=== PATIENT | female | born 1980 | race Caucasian/White ===

== ENCOUNTER 2016-05-31 14:59 | Emergency (ER) | payer SELFPAY ==
[~2016-05-31] VITALS: Ht 175.3 cm; Wt 101.6 kg
[~2016-05-31 14:59] MED LIST: ALPRAZOLAM1 MG PO; AMBIEN5 MG PO; ANTISEPTIC SKI237 ML TP; B-125000 MC1 SL; B-125000 MC2 PO; BACTRIM,SEPT1 TABLE1 PO; BACTRIM,SEPT1 TABLET PO; BIOTIN10 MG PO; BIOTIN1000 MICRO PO; CARAFATE1 GM PO; CEPHALEXIN500 MG PO; CIPRO500 MG PO; CLOPIDOGREL75 MG PO; DAILY VALUE1 EACH PO; DAILY VITE1 EAC1 PO; DICYCLOMINE HCL20 MG PO; DILAUDID2 MG PO; DOXYCYCLINE HY100 MG PO; ENDOCET 5-3251 EACH PO; ENOXAPARIN100 MG/1 M SC; EPIPEN ADU0.3 MG/0.3 IM; ESSENTIAL WOMA1 EAC1 PO; FAMOTIDINE20 MG PO; FEOSOL325 MG PO; FERROUS SULFAT325 MG PO; HEPARIN SO25000 UNIT IV; HUMIRA CRO40 MG/0.8 SC; HYDROCODON-ACE1 EAC7 PO; HYDROMORPHONE HC4 MG PO; HYDROXYZINE PAM25 MG PO; IRON325 MG PO; KEFLEX500 MG PO; LEVAQUIN750 MG PO; LINEZOLID600 MG PO; LOVENOX100 MG/1 M SC; METHYLPHENIDATE36 MG PO; PANTOPRAZOLE SO40 MG PO; PERCOCET 5/31 TABLET PO; PLAVIX75 MG PO; PREDNISONE20 MG PO; PROMETHAZINE HC25 M1 PO; SENOKOT,SENN1 TABLET PO; VENLAFAXINE HCL75 M3 PO; WELLBUTRIN XL300 MG PO; XANAX0.5 MG PO; ZOFRAN4 MG PO; ZOLPIDEM TARTRAT5 MG PO; fentaNYL Citrate IV
[2016-05-31] MEDS ORDERED: LO-DOSE ASPIRIN81 M2 PO (16:29)
[2016-05-31 16:51] LABS: HEMATOCRIT 42.9 % (36.0-46.0); MCH 29.4 PG (29.0-34.0); MCV 86.3 FL (83-99); MEAN PLAT.VOLUME 10.3 uM^3 (9.5-12.4); PLATELET COUNT 234 K/uL (156-360); RBC DIS.WIDTH-CV 14.1 % (11.8-14.6); RBC DIS.WIDTH-SD 43.2 % (39-53); RED BLOOD COUNT 4.97 M/uL (3.80-5.20); WHITE BLOOD COUNT 8.2 K/uL (4.1-10.2)
[2016-05-31 17:00] LABS: CHLORIDE 109 mEq/L (99-109); POTASSIUM 4.1 mEq/L (3.7-5.4); SODIUM 138 mEq/L (136-147)
[2016-05-31 17:02] LABS: GLUCOSE 99 mg/dL (70-99)
[2016-05-31 17:04] LABS: ANION GAP 12 MEQ/L (2-14)
[2016-05-31 17:06] LABS: GFR ESTIMATE (CALCULATED) > 59 mL/min/
[2016-05-31 17:07] LABS: UREA NITROGEN (BUN) 14 mg/dL (9-23)
[2016-05-31 22:25] VITALS: BP 121/77
== END 2016-05-31 22:38 | disposition home or self-care (01) ==
LOC: EME 14:59
DX: R06.02 Shortness of breath (principal); M54.9 Dorsalgia, unspecified; Q96.9 Turner's syndrome, unspecified; Z79.01 Long term (current) use of anticoagulants; Z86.718 Personal history of other venous thrombosis and embolism
CPT/HCPCS: 71020; 71275; 78582; 80048; 85027; 93005; 99281; 99285; A9540; A9567; J1170; Q0169

== ENCOUNTER 2016-06-18 22:24 | Emergency (ER) | payer BC ==
[~2016-06-18] VITALS: Ht 175.3 cm; Wt 102.7 kg
[~2016-06-18 22:24] MED LIST changes: +LO-DOSE ASPIRIN81 M2 PO
[2016-06-18 23:20] LABS: CHLORIDE 109 mEq/L (99-109); POTASSIUM 4.3 mEq/L (3.7-5.4); SODIUM 139 mEq/L (136-147)
[2016-06-18 23:22] LABS: GLUCOSE 122 mg/dL (70-99)
[2016-06-18 23:23] LABS: ANION GAP 11 MEQ/L (2-14)
[2016-06-18 23:25] LABS: HEMATOCRIT 43.5 % (36.0-46.0); MCH 29.8 PG (29.0-34.0); MCHC 34.9 G/DL (30.0-36.0); MCV 85.3 FL (83-99); MEAN PLAT.VOLUME 10.7 uM^3 (9.5-12.4); PLATELET COUNT 232 K/uL (156-360); RBC DIS.WIDTH-CV 14.1 % (11.8-14.6); RBC DIS.WIDTH-SD 42.9 % (39-53)
[2016-06-18 23:26] LABS: GFR ESTIMATE (CALCULATED) > 59 mL/min/; UREA NITROGEN (BUN) 11 mg/dL (9-23)
[2016-06-18 23:36] LABS: PTT 19.4 (25-32)
[2016-06-18 23:41] LABS: WHITE BLOOD COUNT 5.4 K/uL (4.1-10.2)
[2016-06-19] MEDS ORDERED: PERCOCET 5/31 TABLET PO (01:50)
[2016-06-19 02:09] VITALS: BP 136/76
== END 2016-06-19 02:10 | disposition home or self-care (01) ==
LOC: EME 22:24
PROVIDERS: Emergency Medicine
DX: I82.5Z1 Chronic embolism and thrombosis of unspecified deep veins of right distal lower extremity (principal); D68.59 Other primary thrombophilia; K92.2 Gastrointestinal hemorrhage, unspecified; K21.9 Gastro-esophageal reflux disease without esophagitis; Z87.442 Personal history of urinary calculi; Z86.718 Personal history of other venous thrombosis and embolism; Z86.711 Personal history of pulmonary embolism; Z79.82 Long term (current) use of aspirin
CPT/HCPCS: 80048; 85027; 85610; 85730; 93971; 99281; 99284

== ENCOUNTER 2016-07-15 13:35 | Emergency (ER) | payer OTHER ==
[~2016-07-15] VITALS: Ht 175.3 cm; Wt 103.3 kg
[2016-07-15 15:12] LABS: HEMATOCRIT 41.7 % (36.0-46.0); MCH 29.3 PG (29.0-34.0); MCHC 34.1 G/DL (30.0-36.0); MEAN PLAT.VOLUME 9.9 uM^3 (9.5-12.4); PLATELET COUNT 241 K/uL (156-360); RBC DIS.WIDTH-CV 13.7 % (11.8-14.6); RBC DIS.WIDTH-SD 42.6 % (39-53); RED BLOOD COUNT 4.85 M/uL (3.80-5.20); WHITE BLOOD COUNT 5.4 K/uL (4.1-10.2)
[2016-07-15 15:21] LABS: CHLORIDE 108 mEq/L (99-109); POTASSIUM 3.7 mEq/L (3.7-5.4); SODIUM 140 mEq/L (136-147)
[2016-07-15 15:23] LABS: GLUCOSE 91 mg/dL (70-99)
[2016-07-15 15:24] LABS: ANION GAP 9 MEQ/L (2-14)
[2016-07-15 15:25] LABS: INTER. NORMALIZED RATIO 1.1; PROTHROMBIN TIME 10.8 (9.2-11.2); PTT 26.6 (25-32); TOTAL BILIRUBIN 1.2 mg/dL (0.0-1.0)
[2016-07-15 15:26] LABS: ALKALINE PHOSPHATASE 88 IU/L (3-129); GFR ESTIMATE (CALCULATED) > 59 mL/min/
[2016-07-15 15:28] LABS: UREA NITROGEN (BUN) 12 mg/dL (9-23)
[2016-07-15 15:30] LABS: LIPASE 43 U/L (1.0-51.0)
[2016-07-15 16:30] VITALS: BP 143/81
[2016-07-15 17:30] VITALS: BP 129/80
[2016-07-15 18:00] VITALS: BP 139/88
[2016-07-15 18:31] VITALS: BP 109/76
[2016-07-15 18:53] VITALS: BP 109/76
== END 2016-07-15 18:53 | disposition home or self-care (01) ==
LOC: EME 13:35
PROVIDERS: Nurse Practitioner Family
DX: K94.09 Other complications of colostomy (principal); K50.90 Crohn's disease, unspecified, without complications
CPT/HCPCS: 74177; 80053; 83690; 85027; 85610; 85730; 99281; 99284; J3010; J7030

== ENCOUNTER 2016-08-22 10:01 | Inpatient (IN) | payer OTHER ==
[~2016-08-22] VITALS: Ht 175.3 cm; Wt 107.7 kg
[2016-08-22 11:33] LABS: HEMATOCRIT 44.6 % (36.0-46.0); MCH 29.4 PG (29.0-34.0); MCHC 32.7 G/DL (30.0-36.0); MCV 89.7 FL (83-99); MEAN PLAT.VOLUME 10.1 uM^3 (9.5-12.4); PLATELET COUNT 284 K/uL (156-360); RBC DIS.WIDTH-CV 13.5 % (11.8-14.6); RBC DIS.WIDTH-SD 44.3 % (39-53); RED BLOOD COUNT 4.97 M/uL (3.80-5.20)
[2016-08-22 11:38] LABS: PROTHROMBIN TIME 10.3 (9.2-11.2)
[2016-08-22 11:41] LABS: CHLORIDE 106 mEq/L (99-109); POTASSIUM 4.3 mEq/L (3.7-5.4); SODIUM 138 mEq/L (136-147)
[2016-08-22 11:43] LABS: GLUCOSE 105 mg/dL (70-99)
[2016-08-22 11:44] LABS: ANION GAP 9 MEQ/L (2-14)
[2016-08-22 11:45] LABS: TOTAL BILIRUBIN 0.8 mg/dL (0.0-1.0)
[2016-08-22 11:47] LABS: ALKALINE PHOSPHATASE 69 IU/L (3-129); GFR ESTIMATE (CALCULATED) > 59 mL/min/
[2016-08-22 11:48] LABS: UREA NITROGEN (BUN) 13 mg/dL (9-23)
[2016-08-22 14:00] LABS: QUANTITATIVE HCG < 4.0 MIU/ML
[2016-08-22 14:28] LABS: C-REACTIVE PROTEIN 1.7 MG/L (0-10)
[2016-08-22 14:44] LABS: ERTH.SED.RATE 23 MM/HR (0-20)
[2016-08-22] MEDS ORDERED: ALPRAZOLAM0.5 MG PO (16:10)
[2016-08-22] MEDS ORDERED: ADDERALL XR 2020 MG PO (16:10)
[2016-08-22] MEDS ORDERED: ONE-A-DAY ESSE1 EAC1 PO (16:10)
[2016-08-22] MEDS ORDERED: LOVENOX100 MG/1 M SC (16:10)
[2016-08-22] MEDS ORDERED: VITAMIN D31000 UNIT PO (16:10)
[2016-08-22] MEDS ORDERED: PROMETHAZINE HC25 M1 PO (16:11)
[2016-08-22 18:14] LABS: PROTHROMBIN TIME 10.4 (9.2-11.2); PTT 20.5 (25-32)
[2016-08-22 18:17] VITALS: BP 127/77
[2016-08-22 19:00] VITALS: BP 131/95
[2016-08-22 21:17] LABS: HEMATOCRIT 43.9 % (36.0-46.0)
[2016-08-23] VITALS: BP 112/82
[2016-08-23 03:29] VITALS: BP 113/63
[2016-08-23 04:59] LABS: HEMATOCRIT 42.1 % (36.0-46.0); MCV 90.1 FL (83-99)
[2016-08-23 09:41] LABS: HEMATOCRIT 39.4 % (36.0-46.0); MCH 29.7 PG (29.0-34.0); MCHC 32.7 G/DL (30.0-36.0); MCV 90.6 FL (83-99); MEAN PLAT.VOLUME 10.4 uM^3 (9.5-12.4); PLATELET COUNT 207 K/uL (156-360); RBC DIS.WIDTH-CV 13.8 % (11.8-14.6); RED BLOOD COUNT 4.35 M/uL (3.80-5.20); WHITE BLOOD COUNT 6.4 K/uL (4.1-10.2)
[2016-08-23 10:28] LABS: ALKALINE PHOSPHATASE 69 IU/L (3-129); ANION GAP 12 MEQ/L (2-14); CHLORIDE 105 MEQ/L (99-109); GFR ESTIMATE (CALCULATED) > 59 mL/min/; GLUCOSE 120 mg/dL (70-99); POTASSIUM 4.2 MEQ/L (3.7-5.4); SAMPLE HEMOLYSIS CHECK 0; SAMPLE ICTERIC CHECK 0; SAMPLE LIPEMIA CHECK 0; SODIUM 140 MEQ/L (136-147); TOTAL BILIRUBIN 1.3 MG/DL (0.0-1.0); UREA NITROGEN (BUN) 14 mg/dL (9-23)
[2016-08-23 10:50] VITALS: BP 95/20
[2016-08-23 12:32] LABS: HEMATOCRIT 41.9 % (36.0-46.0); MCV 92.3 FL (83-99)
[2016-08-23 16:55] VITALS: BP 121/81
[2016-08-23 20:32] VITALS: BP 109/70
[2016-08-23 21:05] LABS: HEMATOCRIT 41.4 % (36.0-46.0); MCV 92.4 FL (83-99)
[2016-08-24] VITALS: BP 107/63
[2016-08-24 04:58] VITALS: BP 100/62
[2016-08-24 07:57] LABS: HEMATOCRIT 37.5 % (36.0-46.0); MCH 29.4 PG (29.0-34.0); MCHC 31.7 G/DL (30.0-36.0); MCV 92.6 FL (83-99); PLATELET COUNT 184 K/uL (156-360); RBC DIS.WIDTH-CV 13.7 % (11.8-14.6); RBC DIS.WIDTH-SD 47.1 % (39-53); RED BLOOD COUNT 4.05 M/uL (3.80-5.20)
[2016-08-24 08:00] VITALS: BP 105/59
[2016-08-24 08:30] VITALS: BP 128/72
[2016-08-24 08:34] LABS: ANION GAP 7 MEQ/L (2-14); CHLORIDE 106 MEQ/L (99-109); GFR ESTIMATE (CALCULATED) > 59 mL/min/; GLUCOSE 98 mg/dL (70-99); POTASSIUM 4.1 MEQ/L (3.7-5.4); SAMPLE HEMOLYSIS CHECK 0; SAMPLE ICTERIC CHECK 0; SAMPLE LIPEMIA CHECK 0; SODIUM 135 MEQ/L (136-147); UREA NITROGEN (BUN) 10 mg/dL (9-23)
[2016-08-24] MEDS ORDERED: DELZICOL400 M1 PO (10:26)
[2016-08-24] MEDS ORDERED: PROTONIX40 MG PO (10:28)
== END 2016-08-24 12:18 | disposition home or self-care (01) | DRG 378 ==
LOC: EME 10:01 → EDOF 16:50 → 5WEST 16:50 → EDOF 16:50 → 5WEST 16:50 → 2EAST 08-23 19:38
PROVIDERS: Emergency Medicine; Internal Medicine; Internal Medicine Gastroenterology
DX: K92.1 Melena (principal); K22.10 Ulcer of esophagus without bleeding; D68.59 Other primary thrombophilia; K50.90 Crohn's disease, unspecified, without complications; I82.531 Chronic embolism and thrombosis of right popliteal vein; I82.511 Chronic embolism and thrombosis of right femoral vein; I87.1 Compression of vein; K25.9 Gastric ulcer, unspecified as acute or chronic, without hemorrhage or perforation; E66.9 Obesity, unspecified; Z93.3 Colostomy status; Z79.01 Long term (current) use of anticoagulants; Z86.711 Personal history of pulmonary embolism; Z95.820 Peripheral vascular angioplasty status with implants and grafts; Z88.5 Allergy status to narcotic agent; Z68.35 Body mass index [BMI] 35.0-35.9, adult
CPT/HCPCS: 74176; 80048; 80053; 80069; 84702; 85014; 85018; 85027; 85610; 85651; 85730; 86140; 86850; 86900; 86901; 87493; 93971; 99281; 99285; C9113; G0378; J1170; J1650; J7030; Q0169

== ENCOUNTER 2016-12-01 19:08 | Inpatient (IN) | payer OTHER ==
[~2016-12-01] VITALS: Ht 175.3 cm; Wt 108.4 kg
[~2016-12-01 19:08] MED LIST changes: +ADDERALL XR 2020 MG PO; +ALPRAZOLAM0.5 MG PO; +DELZICOL400 M1 PO; +ONE-A-DAY ESSE1 EAC1 PO; +PROTONIX40 MG PO; +VITAMIN D31000 UNIT PO
[2016-12-01] MEDS ORDERED: EPIPEN ADU0.3 MG/0.3 IM (21:25)
[2016-12-01] MEDS ORDERED: PROTONIX40 MG PO (21:26)
[2016-12-01] MEDS ORDERED: WELLBUTRIN SR150 MG PO (21:26)
[2016-12-01 21:31] LABS: HEMATOCRIT 39.9 % (36.0-46.0); MCH 30.8 PG (29.0-34.0); MCHC 34.3 G/DL (30.0-36.0); MCV 89.7 FL (83-99); PLATELET COUNT 234 K/uL (156-360); RBC DIS.WIDTH-CV 13.3 % (11.8-14.6); RBC DIS.WIDTH-SD 43.9 % (39-53); RED BLOOD COUNT 4.45 M/uL (3.80-5.20); WHITE BLOOD COUNT 4.9 K/uL (4.1-10.2)
[2016-12-01 21:38] LABS: INTER. NORMALIZED RATIO 0.9; PROTHROMBIN TIME 10.1 SEC (10.2-12.9)
[2016-12-01 21:40] LABS: PTT 26.3 SEC (25-37)
[2016-12-01 21:58] LABS: ANION GAP 10 MEQ/L (2-14); CHLORIDE 106 MEQ/L (99-109); GFR ESTIMATE (CALCULATED) > 59 mL/min/; GLUCOSE 93 mg/dL (70-99); POTASSIUM 3.9 MEQ/L (3.7-5.4); SAMPLE HEMOLYSIS CHECK 0; SAMPLE ICTERIC CHECK 0; SAMPLE LIPEMIA CHECK 0; SODIUM 140 MEQ/L (136-147); UREA NITROGEN (BUN) 11 mg/dL (9-23)
[2016-12-01 21:59] LABS: TROP-I INTERPRETATION NEGATIVE; TROPONIN-I < 0.01 ng/mL (0.0-0.30)
[2016-12-01 23:11] VITALS: BP 118/73
[2016-12-02 04:00] VITALS: BP 105/64
[2016-12-02 05:59] LABS: EOSINOPHIL COUNT 0.1 K/uL (0-0.3); HEMATOCRIT 38.9 % (36.0-46.0); IMMATURE GRANULOCYTE (%) 1.1 % (0.0-0.7); IMMATURE GRANULOCYTE COUNT 0.1 K/uL; INSTRUMENT ABS NEUTROPHIL CT 2.5 K/uL; LYMPHOCYTE COUNT 1.3 K/uL (1.0-2.8); MCH 30.4 PG (29.0-34.0); MCHC 33.2 G/DL (30.0-36.0); MCV 91.7 FL (83-99); MEAN PLAT.VOLUME 10.2 uM^3 (9.5-12.4); MONOCYTE (%) 9.8 % (3-12); MONOCYTE COUNT 0.4 K/uL (0-0.8); NEUTROPHIL (%) 56.6 % (45-76); NEUTROPHIL COUNT 2.5 K/uL (1.8-6.4); PLATELET COUNT 213 K/uL (156-360); RBC DIS.WIDTH-CV 13.7 % (11.8-14.6); RBC DIS.WIDTH-SD 46.2 % (39-53); RED BLOOD COUNT 4.24 M/uL (3.80-5.20); WHITE BLOOD COUNT 4.4 K/uL (4.1-10.2)
[2016-12-02 06:06] LABS: PROTHROMBIN TIME 11.2 SEC (10.2-12.9)
[2016-12-02 06:09] LABS: PTT 33.8 SEC (25-37)
[2016-12-02 06:25] LABS: ANION GAP 11 MEQ/L (2-14); CHLORIDE 106 MEQ/L (99-109); GFR ESTIMATE (CALCULATED) > 59 mL/min/; GLUCOSE 94 mg/dL (70-99); HDL CHOLESTEROL 48 MG/DL (Desirable>=50); LDL CHOLESTEROL 84 mg/dL (Desirable<100); NON-HDL CHOLESTEROL 137 mg/dL (Desirable<160); SAMPLE HEMOLYSIS CHECK 0; SAMPLE ICTERIC CHECK 0; SAMPLE LIPEMIA CHECK 0; SODIUM 140 MEQ/L (136-147); TOTAL CHOLESTEROL 185 mg/dL (Desirable<200); TRIGLYCERIDES 267 MG/DL (Normal: <150); UREA NITROGEN (BUN) 13 mg/dL (9-23)
[2016-12-02 07:51] LABS: Estimated Average Glucose 103 mg/dL (70-123); HEMOGLOBIN A1c (GLYCOHEMOGLOB) 5.2 % HGB (Below 5.7)
[2016-12-02 08:18] VITALS: BP 98/53
[2016-12-02 09:25] LABS: FACTOR Xa INHIBITION (LMWH) 0.1 IU/mL
[2016-12-02 12:19] VITALS: BP 121/65
[2016-12-02 12:22] LABS: ADD MIUA? YES; BILIRUBIN NEGATIVE; BLOOD NEGATIVE; COLOR YELLOW ((YELLOW)); GLUCOSE (STRIP) NEGATIVE; KETONES NEGATIVE; LEUKOCYTES TRACE; NITRITE NEGATIVE; PROTEIN (STRIP) NEGATIVE; SPECIFIC GRAVITY 1.017 (1.000-1.030); UROBILINOGEN 0.2 MG/DL (0.2-1.0)
[2016-12-02 12:43] LABS: BACTERIA NONE SEEN /HPF; BUDDING YEAST 1+; EPITHELIAL CELLS NONE SEEN /HPF; MUCUS TRACE /LPF; RED BLOOD CELLS NONE SEEN /HPF (0-5); UCUL ADDED? NO
[2016-12-02 15:56] VITALS: BP 115/58
[2016-12-02 20:06] VITALS: BP 119/71
[2016-12-02 23:52] VITALS: BP 127/63
[2016-12-03 03:47] VITALS: BP 116/61
[2016-12-03 07:17] LABS: MCH 31.5 PG (29.0-34.0); MCHC 34.1 G/DL (30.0-36.0); MCV 92.4 FL (83-99); MEAN PLAT.VOLUME 11.1 uM^3 (9.5-12.4); PLATELET COUNT 175 K/uL (156-360); RBC DIS.WIDTH-CV 13.5 % (11.8-14.6); RBC DIS.WIDTH-SD 45.8 % (39-53); RED BLOOD COUNT 4.22 M/uL (3.80-5.20); WHITE BLOOD COUNT 3.9 K/uL (4.1-10.2)
[2016-12-03 07:29] LABS: ANION GAP 10 MEQ/L (2-14); CHLORIDE 107 MEQ/L (99-109); GFR ESTIMATE (CALCULATED) > 59 mL/min/; GLUCOSE 91 mg/dL (70-99); POTASSIUM 4.6 MEQ/L (3.7-5.4); SAMPLE HEMOLYSIS CHECK 2; SAMPLE ICTERIC CHECK 0; SAMPLE LIPEMIA CHECK 0; SODIUM 139 MEQ/L (136-147); UREA NITROGEN (BUN) 15 mg/dL (9-23)
[2016-12-03 07:50] VITALS: BP 86/51
[2016-12-03 12:00] VITALS: BP 135/79
[2016-12-03 16:02] VITALS: BP 125/85
[2016-12-03 18:37] LABS: ADD MIUA? YES; BILIRUBIN NEGATIVE; BLOOD MODERATE; COLOR YELLOW ((YELLOW)); GLUCOSE (STRIP) NEGATIVE; KETONES NEGATIVE; LEUKOCYTES NEGATIVE; NITRITE NEGATIVE; PROTEIN (STRIP) NEGATIVE; UROBILINOGEN 0.2 MG/DL (0.2-1.0)
[2016-12-03 18:38] LABS: BACTERIA NONE SEEN /HPF; EPITHELIAL CELLS RARE /HPF; MUCUS TRACE /LPF; RED BLOOD CELLS 30-40 /HPF (0-5); UCUL ADDED? NO; WHITE BLOOD CELLS 0-5 /HPF (0-5)
[2016-12-03 19:43] VITALS: BP 131/67
[2016-12-03 23:41] VITALS: BP 144/78
[2016-12-04 04:06] VITALS: BP 117/58
[2016-12-04 05:55] LABS: HEMATOCRIT 37.7 % (36.0-46.0); MCH 31.6 PG (29.0-34.0); MCV 93.1 FL (83-99); MEAN PLAT.VOLUME 10.3 uM^3 (9.5-12.4); PLATELET COUNT 183 K/uL (156-360); RBC DIS.WIDTH-CV 13.2 % (11.8-14.6); RBC DIS.WIDTH-SD 45.4 % (39-53); RED BLOOD COUNT 4.05 M/uL (3.80-5.20); WHITE BLOOD COUNT 3.8 K/uL (4.1-10.2)
[2016-12-04 06:28] LABS: ANION GAP 8 MEQ/L (2-14); CHLORIDE 108 MEQ/L (99-109); GFR ESTIMATE (CALCULATED) > 59 mL/min/; GLUCOSE 94 mg/dL (70-99); POTASSIUM 4.2 MEQ/L (3.7-5.4); SAMPLE HEMOLYSIS CHECK 0; SAMPLE ICTERIC CHECK 0; SAMPLE LIPEMIA CHECK 0; SODIUM 139 MEQ/L (136-147); UREA NITROGEN (BUN) 9 mg/dL (9-23)
[2016-12-04 07:46] VITALS: BP 108/74
[2016-12-04 11:29] VITALS: BP 113/73
[2016-12-04 15:48] VITALS: BP 131/76
[2016-12-05 00:11] VITALS: BP 100/61
[2016-12-05 03:44] VITALS: BP 100/61
[2016-12-05 08:26] VITALS: BP 114/65
[2016-12-05] MEDS ORDERED: BUTALB-APAP-CA1 EACH PO (09:51)
== END 2016-12-05 14:47 | disposition home health service (06) | DRG 300 ==
LOC: EME 19:08 → EDOF 21:18 → 5SOUTH 21:18 → ENPENDDIS 12-05 → 5SOUTH 12-05 14:47
PROVIDERS: Emergency Medicine; Internal Medicine; Nurse Practitioner Adult Health
DX: I87.1 Compression of vein (principal); D68.59 Other primary thrombophilia; K50.90 Crohn's disease, unspecified, without complications; F41.9 Anxiety disorder, unspecified; E04.2 Nontoxic multinodular goiter; I10 Essential (primary) hypertension; K21.9 Gastro-esophageal reflux disease without esophagitis; R33.9 Retention of urine, unspecified; N31.9 Neuromuscular dysfunction of bladder, unspecified; N20.0 Calculus of kidney; I95.9 Hypotension, unspecified; Z93.3 Colostomy status; Z90.49 Acquired absence of other specified parts of digestive tract; Z79.01 Long term (current) use of anticoagulants; Z86.711 Personal history of pulmonary embolism; Z87.442 Personal history of urinary calculi; Z86.718 Personal history of other venous thrombosis and embolism
CPT/HCPCS: 70450; 71010; 80048; 80048 91; 80061; 81003; 83036; 83605; 84443; 84484; 84702; 85025; 85027; 85520; 85610; 85730; 87040; 92610 GN; 93005; 93306; 93880; 97530 GO; 99281; 99285; J1170; J1650; J3010; J7030; Q0169

== ENCOUNTER 2017-02-03 13:48 | Inpatient (IN) | payer OTHER ==
[~2017-02-03] VITALS: Ht 175.3 cm; Wt 106.3 kg
[~2017-02-03 13:48] MED LIST changes: +BUTALB-APAP-CA1 EACH PO; +WELLBUTRIN SR150 MG PO
[2017-02-03] MEDS ORDERED: COLACE (15:40)
[2017-02-03 15:55] LABS: ADD MIUA? YES; BILIRUBIN NEGATIVE; BLOOD NEGATIVE; COLOR YELLOW ((YELLOW)); GLUCOSE (STRIP) NEGATIVE; KETONES NEGATIVE; LEUKOCYTES TRACE; NITRITE NEGATIVE; PROTEIN (STRIP) NEGATIVE; SPECIFIC GRAVITY 1.014 (1.000-1.030); UROBILINOGEN 0.2 MG/DL (0.2-1.0)
[2017-02-03 16:00] LABS: BACTERIA NONE SEEN /HPF; EPITHELIAL CELLS 1+ /HPF; MUCUS TRACE /LPF; RED BLOOD CELLS 0-5 /HPF (0-5)
[2017-02-03 16:07] LABS: HEMATOCRIT 37.6 % (36.0-46.0); MCH 29.9 PG (29.0-34.0); MCHC 31.9 G/DL (30.0-36.0); MCV 93.5 FL (83-99); MEAN PLAT.VOLUME 10.6 uM^3 (9.5-12.4); PLATELET COUNT 184 K/uL (156-360); RBC DIS.WIDTH-CV 14.7 % (11.8-14.6); RBC DIS.WIDTH-SD 49.7 % (39-53); RED BLOOD COUNT 4.02 M/uL (3.80-5.20); WHITE BLOOD COUNT 5.8 K/uL (4.1-10.2)
[2017-02-03 16:52] LABS: CHLORIDE 108 mEq/L (99-109); POTASSIUM 3.8 mEq/L (3.7-5.4); SODIUM 141 mEq/L (136-147)
[2017-02-03 16:54] LABS: GLUCOSE 101 mg/dL (70-99)
[2017-02-03 16:56] LABS: ANION GAP 11 MEQ/L (2-14); TOTAL BILIRUBIN 0.3 mg/dL (0.0-1.0)
[2017-02-03 16:58] LABS: ALKALINE PHOSPHATASE 85 IU/L (3-129); GFR ESTIMATE (CALCULATED) > 59 mL/min/
[2017-02-03 16:59] LABS: UREA NITROGEN (BUN) 14 mg/dL (9-23)
[2017-02-03 17:02] LABS: LIPASE 90 U/L (1.0-51.0)
[2017-02-03 17:03] LABS: QUANTITATIVE HCG < 4.0 MIU/ML
[2017-02-03] MEDS ORDERED: COLACE100 MG PO (21:47)
[2017-02-04] VITALS (7 sets, daily range): BP systolic 103–171; BP diastolic 53–84
[2017-02-04 07:23] LABS: ADD MIUA? YES; BILIRUBIN NEGATIVE; BLOOD NEGATIVE; COLOR YELLOW ((YELLOW)); GLUCOSE (STRIP) NEGATIVE; KETONES NEGATIVE; LEUKOCYTES SMALL; NITRITE NEGATIVE; PROTEIN (STRIP) NEGATIVE; SPECIFIC GRAVITY 1.021 (1.000-1.030); UROBILINOGEN 0.2 MG/DL (0.2-1.0)
[2017-02-04 07:58] LABS: BACTERIA RARE /HPF; EPITHELIAL CELLS 2+ /HPF; MUCUS NONE SEEN /LPF; UCUL ADDED? YES; WHITE BLOOD CELLS 20-30 /HPF (0-5)
[2017-02-04 10:43] LABS: BASOPHIL COUNT 0.1 K/uL (0-0.1); EOSINOPHIL (%) 2.8 % (0-5); EOSINOPHIL COUNT 0.1 K/uL (0-0.3); HEMATOCRIT 30.3 % (36.0-46.0); IMMATURE GRANULOCYTE (%) 1.2 % (0.0-0.7); IMMATURE GRANULOCYTE COUNT 0.1 K/uL; INSTRUMENT ABS NEUTROPHIL CT 2.9 K/uL; LYMPHOCYTE COUNT 0.8 K/uL (1.0-2.8); MCH 30.2 PG (29.0-34.0); MCV 94.4 FL (83-99); MEAN PLAT.VOLUME 10.3 uM^3 (9.5-12.4); MONOCYTE (%) 10.7 % (3-12); MONOCYTE COUNT 0.5 K/uL (0-0.8); NEUTROPHIL (%) 66.4 % (45-76); NEUTROPHIL COUNT 2.9 K/uL (1.8-6.4); PLATELET COUNT 181 K/uL (156-360); RBC DIS.WIDTH-CV 14.9 % (11.8-14.6); RBC DIS.WIDTH-SD 50.9 % (39-53); RED BLOOD COUNT 3.21 M/uL (3.80-5.20); WHITE BLOOD COUNT 4.3 K/uL (4.1-10.2)
[2017-02-04 10:54] LABS: INTER. NORMALIZED RATIO 1.1; PROTHROMBIN TIME 12.3 SEC (10.2-12.9)
[2017-02-04 10:57] LABS: PTT 30.8 SEC (25-37)
[2017-02-04 11:08] LABS: ANION GAP 8 MEQ/L (2-14); CHLORIDE 109 MEQ/L (99-109); GFR ESTIMATE (CALCULATED) > 59 mL/min/; GLUCOSE 96 mg/dL (70-99); POTASSIUM 3.9 MEQ/L (3.7-5.4); SAMPLE HEMOLYSIS CHECK 0; SAMPLE ICTERIC CHECK 0; SAMPLE LIPEMIA CHECK 0; SODIUM 142 MEQ/L (136-147); UREA NITROGEN (BUN) 9 mg/dL (9-23)
[2017-02-04 11:37] LABS: INTERNAL CONTROL VALID? YES
[2017-02-04 12:33] LABS: C DIFF TOXIN POSITIVE (NEGATIVE)
[2017-02-04 12:37] LABS: PROBE CHECK PASS
[2017-02-05 00:48] VITALS: BP 118/60
[2017-02-05 04:22] VITALS: BP 110/72
[2017-02-05 07:04] LABS: EOSINOPHIL (%) 2.9 % (0-5); EOSINOPHIL COUNT 0.1 K/uL (0-0.3); HEMATOCRIT 28.6 % (36.0-46.0); IMMATURE GRANULOCYTE (%) 1.2 % (0.0-0.7); IMMATURE GRANULOCYTE COUNT 0.1 K/uL; INSTRUMENT ABS NEUTROPHIL CT 2.9 K/uL; LYMPHOCYTE COUNT 0.7 K/uL (1.0-2.8); MCH 29.5 PG (29.0-34.0); MCHC 31.5 G/DL (30.0-36.0); MCV 93.8 FL (83-99); MEAN PLAT.VOLUME 10.7 uM^3 (9.5-12.4); MONOCYTE (%) 8.4 % (3-12); MONOCYTE COUNT 0.4 K/uL (0-0.8); NEUTROPHIL (%) 70.4 % (45-76); NEUTROPHIL COUNT 2.9 K/uL (1.8-6.4); PLATELET COUNT 163 K/uL (156-360); RBC DIS.WIDTH-CV 14.6 % (11.8-14.6); RBC DIS.WIDTH-SD 49.5 % (39-53); RED BLOOD COUNT 3.05 M/uL (3.80-5.20); WHITE BLOOD COUNT 4.2 K/uL (4.1-10.2)
[2017-02-05 07:28] LABS: ANION GAP 10 MEQ/L (2-14); CHLORIDE 107 MEQ/L (99-109); GFR ESTIMATE (CALCULATED) > 59 mL/min/; GLUCOSE 95 mg/dL (70-99); POTASSIUM 3.8 MEQ/L (3.7-5.4); SAMPLE HEMOLYSIS CHECK 0; SAMPLE ICTERIC CHECK 0; SAMPLE LIPEMIA CHECK 0; SODIUM 141 MEQ/L (136-147); UREA NITROGEN (BUN) 9 mg/dL (9-23)
[2017-02-05 08:20] VITALS: BP 126/78
[2017-02-05 12:30] VITALS: BP 124/71
[2017-02-05 15:30] VITALS: BP 122/67
[2017-02-05 20:40] VITALS: BP 120/68
[2017-02-06 00:07] VITALS: BP 127/62
[2017-02-06 03:42] VITALS: BP 102/63
[2017-02-06 07:21] LABS: EOSINOPHIL COUNT 0.1 K/uL (0-0.3); HEMATOCRIT 28.3 % (36.0-46.0); IMMATURE GRANULOCYTE (%) 0.9 % (0.0-0.7); INSTRUMENT ABS NEUTROPHIL CT 2.7 K/uL; LYMPHOCYTE COUNT 0.9 K/uL (1.0-2.8); MCH 30.9 PG (29.0-34.0); MCHC 32.9 G/DL (30.0-36.0); MEAN PLAT.VOLUME 11.2 uM^3 (9.5-12.4); MONOCYTE (%) 11.7 % (3-12); MONOCYTE COUNT 0.5 K/uL (0-0.8); NEUTROPHIL (%) 62.1 % (45-76); NEUTROPHIL COUNT 2.7 K/uL (1.8-6.4); PLATELET COUNT 154 K/uL (156-360); RBC DIS.WIDTH-CV 14.5 % (11.8-14.6); RBC DIS.WIDTH-SD 48.5 % (39-53); RED BLOOD COUNT 3.01 M/uL (3.80-5.20); WHITE BLOOD COUNT 4.4 K/uL (4.1-10.2)
[2017-02-06 07:48] LABS: ANION GAP 11 MEQ/L (2-14); CHLORIDE 106 MEQ/L (99-109); GFR ESTIMATE (CALCULATED) > 59 mL/min/; GLUCOSE 88 mg/dL (70-99); POTASSIUM 3.6 MEQ/L (3.7-5.4); SAMPLE HEMOLYSIS CHECK 0; SAMPLE ICTERIC CHECK 0; SAMPLE LIPEMIA CHECK 0; SODIUM 140 MEQ/L (136-147); UREA NITROGEN (BUN) 8 mg/dL (9-23)
[2017-02-06 09:29] VITALS: BP 115/62
[2017-02-06 11:51] VITALS: BP 114/72
[2017-02-06 15:46] VITALS: BP 116/82
[2017-02-06 20:41] VITALS: BP 119/70
[2017-02-07 00:31] VITALS: BP 105/60
[2017-02-07 04:16] VITALS: BP 100/65
[2017-02-07 06:55] LABS: EOSINOPHIL (%) 3.7 % (0-5); EOSINOPHIL COUNT 0.2 K/uL (0-0.3); IMMATURE GRANULOCYTE (%) 0.9 % (0.0-0.7); INSTRUMENT ABS NEUTROPHIL CT 2.7 K/uL; LYMPHOCYTE COUNT 0.9 K/uL (1.0-2.8); MCH 31.2 PG (29.0-34.0); MCHC 33.7 G/DL (30.0-36.0); MCV 92.6 FL (83-99); MEAN PLAT.VOLUME 10.7 uM^3 (9.5-12.4); MONOCYTE COUNT 0.5 K/uL (0-0.8); NEUTROPHIL (%) 62.5 % (45-76); NEUTROPHIL COUNT 2.7 K/uL (1.8-6.4); PLATELET COUNT 153 K/uL (156-360); RBC DIS.WIDTH-CV 14.6 % (11.8-14.6); RBC DIS.WIDTH-SD 48.9 % (39-53); RED BLOOD COUNT 3.24 M/uL (3.80-5.20); WHITE BLOOD COUNT 4.3 K/uL (4.1-10.2)
[2017-02-07 07:20] LABS: ANION GAP 8 MEQ/L (2-14); CHLORIDE 107 MEQ/L (99-109); POTASSIUM 3.7 MEQ/L (3.7-5.4); SAMPLE HEMOLYSIS CHECK 0; SAMPLE ICTERIC CHECK 0; SAMPLE LIPEMIA CHECK 0; SODIUM 141 MEQ/L (136-147)
[2017-02-07 07:25] LABS: GFR ESTIMATE (CALCULATED) > 59 mL/min/; GLUCOSE 85 mg/dL (70-99); UREA NITROGEN (BUN) 5 mg/dL (9-23)
[2017-02-07 08:06] VITALS: BP 102/74
[2017-02-07 11:42] VITALS: BP 105/76
[2017-02-07 16:44] VITALS: BP 113/75
[2017-02-07 20:10] VITALS: BP 110/72
[2017-02-08 00:30] VITALS: BP 120/68
[2017-02-08 03:50] VITALS: BP 136/58
[2017-02-08 07:14] LABS: EOSINOPHIL (%) 3.6 % (0-5); EOSINOPHIL COUNT 0.1 K/uL (0-0.3); HEMATOCRIT 31.2 % (36.0-46.0); IMMATURE GRANULOCYTE (%) 1.1 % (0.0-0.7); INSTRUMENT ABS NEUTROPHIL CT 2.2 K/uL; LYMPHOCYTE COUNT 0.7 K/uL (1.0-2.8); MCH 31.1 PG (29.0-34.0); MCV 94.3 FL (83-99); MEAN PLAT.VOLUME 10.6 uM^3 (9.5-12.4); MONOCYTE (%) 13.2 % (3-12); MONOCYTE COUNT 0.5 K/uL (0-0.8); NEUTROPHIL COUNT 2.2 K/uL (1.8-6.4); PLATELET COUNT 172 K/uL (156-360); RBC DIS.WIDTH-CV 14.9 % (11.8-14.6); RBC DIS.WIDTH-SD 50.6 % (39-53); RED BLOOD COUNT 3.31 M/uL (3.80-5.20); WHITE BLOOD COUNT 3.7 K/uL (4.1-10.2)
[2017-02-08 07:49] LABS: ANION GAP 11 MEQ/L (2-14); CHLORIDE 106 MEQ/L (99-109); GFR ESTIMATE (CALCULATED) > 59 mL/min/; GLUCOSE 93 mg/dL (70-99); POTASSIUM 3.6 MEQ/L (3.7-5.4); SAMPLE HEMOLYSIS CHECK 0; SAMPLE ICTERIC CHECK 0; SAMPLE LIPEMIA CHECK 0; SODIUM 141 MEQ/L (136-147); UREA NITROGEN (BUN) 4 mg/dL (9-23)
[2017-02-08 07:51] VITALS: BP 92/62
[2017-02-08 18:38] VITALS: BP 145/71
[2017-02-08 19:30] VITALS: BP 116/56
[2017-02-08 23:21] VITALS: BP 142/68
[2017-02-09 03:18] VITALS: BP 117/57
[2017-02-09] MEDS ORDERED: FLAGYL500 MG PO (11:37)
== END 2017-02-09 12:27 | disposition home health service (06) | DRG 863 ==
LOC: EME 13:48 → 2EAST 22:55 → EDOF 22:55 → ENRESERV 22:58 → EDOF 02-04 00:10 → 2EAST 02-04 00:17
PROVIDERS: Hospitalist; Nurse Practitioner Family; Physician Assistant; Radiology Diagnostic Radiology
PROC: 0J983ZZ Drainage of Abdomen Subcutaneous Tissue and Fascia, Percutaneous Approach (ICD-10-PCS; principal; 2017-02-05)
DX: T81.4XXA Infection following a procedure, initial encounter (principal); Y83.3 Surgical operation with formation of external stoma as the cause of abnormal reaction of the patient, or of later complication, without mention of misadventure at the time of the procedure; L02.211 Cutaneous abscess of abdominal wall; D68.59 Other primary thrombophilia; E03.9 Hypothyroidism, unspecified; K21.9 Gastro-esophageal reflux disease without esophagitis; K50.90 Crohn's disease, unspecified, without complications; I10 Essential (primary) hypertension; F32.9 Major depressive disorder, single episode, unspecified; Z86.711 Personal history of pulmonary embolism; Z86.718 Personal history of other venous thrombosis and embolism; Z93.3 Colostomy status; Z23 Encounter for immunization
CPT/HCPCS: 10030; 71020; 74020; 74177; 80048; 80053; 80202; 81003; 82272; 83605; 83690; 84702; 85025; 85027; 85610; 85730; 87040; 87070; 87075; 87086; 87205; 87493; 90686; 99281; 99285; C1753; J0295; J0692; J1170; J1650; J1885; J2543; J3010; J3370; J7030; J7050; Q0169; S0028; S0030

== ENCOUNTER 2017-02-10 16:34 | Inpatient (IN) | payer OTHER ==
[~2017-02-10] VITALS: Ht 175.3 cm; Wt 110.3 kg
[~2017-02-10 16:34] MED LIST changes: +COLACE; +COLACE100 MG PO; +FLAGYL500 MG PO
[2017-02-10 19:35] LABS: CHLORIDE 106 mEq/L (99-109); POTASSIUM 3.4 mEq/L (3.7-5.4); SODIUM 143 mEq/L (136-147)
[2017-02-10 19:36] LABS: MAGNESIUM 1.6 mg/dL (1.3-2.7)
[2017-02-10 19:38] LABS: ANION GAP 13 MEQ/L (2-14)
[2017-02-10 19:39] LABS: TOTAL BILIRUBIN 0.4 mg/dL (0.0-1.0)
[2017-02-10 19:41] LABS: ALKALINE PHOSPHATASE 86 IU/L (3-129); EOSINOPHIL (%) 0.9 % (0-5); EOSINOPHIL COUNT 0.1 K/uL (0-0.3); GFR ESTIMATE (CALCULATED) > 59 mL/min/; HEMATOCRIT 37.4 % (36.0-46.0); IMMATURE GRANULOCYTE (%) 0.5 % (0.0-0.7); LYMPHOCYTE COUNT 0.9 K/uL (1.0-2.8); MCH 29.8 PG (29.0-34.0); MCHC 32.6 G/DL (30.0-36.0); MCV 91.2 FL (83-99); MEAN PLAT.VOLUME 10.4 uM^3 (9.5-12.4); MONOCYTE (%) 8.1 % (3-12); MONOCYTE COUNT 0.6 K/uL (0-0.8); NEUTROPHIL (%) 78.7 % (45-76); RBC DIS.WIDTH-CV 15.3 % (11.8-14.6); WHITE BLOOD COUNT 7.7 K/uL (4.1-10.2)
[2017-02-10 19:42] LABS: PLATELET COUNT 235 K/uL (156-360); UREA NITROGEN (BUN) 6 mg/dL (9-23)
[2017-02-10 19:44] LABS: LIPASE 95 U/L (1.0-51.0)
[2017-02-10 19:49] LABS: GLUCOSE 119 mg/dL (70-99)
[2017-02-10 22:23] LABS: ADD MIUA? YES; BILIRUBIN NEGATIVE; BLOOD NEGATIVE; COLOR YELLOW ((YELLOW)); GLUCOSE (STRIP) NEGATIVE; KETONES NEGATIVE; LEUKOCYTES TRACE; NITRITE NEGATIVE; PROTEIN (STRIP) NEGATIVE; SPECIFIC GRAVITY 1.013 (1.000-1.030); UROBILINOGEN 0.2 MG/DL (0.2-1.0)
[2017-02-10 22:24] LABS: INTERNAL CONTROL VALID? YES
[2017-02-10 22:29] LABS: BACTERIA NONE SEEN /HPF; EPITHELIAL CELLS 2+ /HPF; MUCUS TRACE /LPF; UCUL ADDED? YES
[2017-02-11 03:14] VITALS: BP 166/86
[2017-02-11 03:45] VITALS: BP 166/86
[2017-02-11 09:29] LABS: HEMATOCRIT 34.5 % (36.0-46.0); MCH 29.7 PG (29.0-34.0); MCHC 31.9 G/DL (30.0-36.0); MCV 93.2 FL (83-99); MEAN PLAT.VOLUME 10.6 uM^3 (9.5-12.4); PLATELET COUNT 193 K/uL (156-360); RBC DIS.WIDTH-CV 15.8 % (11.8-14.6); RBC DIS.WIDTH-SD 53.1 % (39-53); WHITE BLOOD COUNT 5.3 K/uL (4.1-10.2)
[2017-02-11 09:49] LABS: ANION GAP 12 MEQ/L (2-14); CHLORIDE 109 MEQ/L (99-109); SAMPLE HEMOLYSIS CHECK 0; SAMPLE ICTERIC CHECK 0; SAMPLE LIPEMIA CHECK 0; SODIUM 144 MEQ/L (136-147)
[2017-02-11 09:58] LABS: GFR ESTIMATE (CALCULATED) > 59 mL/min/; GLUCOSE 119 mg/dL (70-99); UREA NITROGEN (BUN) 5 mg/dL (9-23)
[2017-02-11 12:03] VITALS: BP 117/68
[2017-02-11 20:19] LABS: HEMATOCRIT 32.9 % (36.0-46.0); MCH 31.2 PG (29.0-34.0); MCHC 33.1 G/DL (30.0-36.0); MCV 94.3 FL (83-99); RBC DIS.WIDTH-CV 15.9 % (11.8-14.6); RBC DIS.WIDTH-SD 55.3 % (39-53); RED BLOOD COUNT 3.49 M/uL (3.80-5.20); WHITE BLOOD COUNT 5.9 K/uL (4.1-10.2)
[2017-02-11 20:29] VITALS: BP 116/68
[2017-02-11 20:40] LABS: IRON 43 MCG/DL (35-150)
[2017-02-11 21:39] LABS: PLATELET CLUMPS PRESENT - PLATELET COUNT APPEARS ADQ.; PLATELET COUNT UNABLE TO REPORT K/uL (156-360)
[2017-02-12 00:28] VITALS: BP 121/68
[2017-02-12 03:50] VITALS: BP 115/57
[2017-02-12 07:58] LABS: EOSINOPHIL (%) 2.2 % (0-5); EOSINOPHIL COUNT 0.1 K/uL (0-0.3); HEMATOCRIT 32.3 % (36.0-46.0); IMMATURE GRANULOCYTE (%) 0.6 % (0.0-0.7); INSTRUMENT ABS NEUTROPHIL CT 3.5 K/uL; LYMPHOCYTE COUNT 0.7 K/uL (1.0-2.8); MCH 31.3 PG (29.0-34.0); MCHC 32.2 G/DL (30.0-36.0); MCV 97.3 FL (83-99); MEAN PLAT.VOLUME 10.7 uM^3 (9.5-12.4); MONOCYTE (%) 11.4 % (3-12); MONOCYTE COUNT 0.6 K/uL (0-0.8); NEUTROPHIL (%) 70.8 % (45-76); NEUTROPHIL COUNT 3.5 K/uL (1.8-6.4); RBC DIS.WIDTH-CV 15.4 % (11.8-14.6); RBC DIS.WIDTH-SD 54.3 % (39-53); RED BLOOD COUNT 3.32 M/uL (3.80-5.20); WHITE BLOOD COUNT 4.9 K/uL (4.1-10.2)
[2017-02-12 08:04] LABS: PLATELET COUNT 154 K/uL (156-360)
[2017-02-12 08:20] LABS: ANION GAP 10 MEQ/L (2-14); CHLORIDE 111 MEQ/L (99-109); POTASSIUM 3.4 MEQ/L (3.7-5.4); SAMPLE HEMOLYSIS CHECK 0; SAMPLE ICTERIC CHECK 0; SAMPLE LIPEMIA CHECK 0; SODIUM 143 MEQ/L (136-147)
[2017-02-12 08:25] LABS: GFR ESTIMATE (CALCULATED) > 59 mL/min/; GLUCOSE 96 mg/dL (70-99); UREA NITROGEN (BUN) 5 mg/dL (9-23)
[2017-02-12 11:04] LABS: MAGNESIUM 1.7 mg/dl (1.3-2.7)
[2017-02-12 11:50] VITALS: BP 136/80
[2017-02-12 16:30] VITALS: BP 131/71
[2017-02-12 19:38] VITALS: BP 137/77
[2017-02-12 23:14] VITALS: BP 129/74
[2017-02-13 04:00] VITALS: BP 109/59
[2017-02-13 08:05] VITALS: BP 125/66
[2017-02-13 10:26] LABS: HEMATOCRIT 29.9 % (36.0-46.0); MCH 30.6 PG (29.0-34.0); MCHC 32.4 G/DL (30.0-36.0); MCV 94.3 FL (83-99); MEAN PLAT.VOLUME 10.2 uM^3 (9.5-12.4); PLATELET COUNT 164 K/uL (156-360); RBC DIS.WIDTH-CV 15.1 % (11.8-14.6); RBC DIS.WIDTH-SD 52.5 % (39-53); RED BLOOD COUNT 3.17 M/uL (3.80-5.20); WHITE BLOOD COUNT 3.4 K/uL (4.1-10.2)
[2017-02-13 10:52] LABS: ANION GAP 7 MEQ/L (2-14); CHLORIDE 110 MEQ/L (99-109); POTASSIUM 3.4 MEQ/L (3.7-5.4); SAMPLE HEMOLYSIS CHECK 0; SAMPLE ICTERIC CHECK 0; SAMPLE LIPEMIA CHECK 0; SODIUM 143 MEQ/L (136-147)
[2017-02-13 10:58] LABS: GFR ESTIMATE (CALCULATED) > 59 mL/min/; GLUCOSE 103 mg/dL (70-99); UREA NITROGEN (BUN) 5 mg/dL (9-23)
[2017-02-13 11:49] VITALS: BP 146/61
[2017-02-13 14:33] LABS: HEMATOCRIT 29.6 % (36.0-46.0); MCV 96.1 FL (83-99)
[2017-02-13 14:40] LABS: INTER. NORMALIZED RATIO 1.1; PROTHROMBIN TIME 12.6 SEC (10.2-12.9)
[2017-02-13 14:42] LABS: PTT 26.6 SEC (25-37)
[2017-02-13 15:37] VITALS: BP 111/63
[2017-02-13 19:33] VITALS: BP 129/65
[2017-02-13 20:23] LABS: HEMATOCRIT 28.9 % (36.0-46.0); MCV 95.1 FL (83-99)
[2017-02-13 23:35] VITALS: BP 122/67
[2017-02-14 02:43] VITALS: BP 135/72
== END 2017-02-14 03:55 | disposition short-term general hospital (02) | DRG 372 ==
LOC: EME 16:34 → EDOF 02-11 00:48 → ENRESERV 02-11 00:49 → 3EAST 02-11 03:10
PROVIDERS: Emergency Medicine; Hospitalist; Internal Medicine; Physician Assistant
PROC: 0J9830Z Drainage of Abdomen Subcutaneous Tissue and Fascia with Drainage Device, Percutaneous Approach (ICD-10-PCS; principal; 2017-02-11)
PROC: 02HV33Z Insertion of Infusion Device into Superior Vena Cava, Percutaneous Approach (ICD-10-PCS; 2017-02-12)
DX: K65.1 Peritoneal abscess (principal); K50.911 Crohn's disease, unspecified, with rectal bleeding; D68.59 Other primary thrombophilia; D62 Acute posthemorrhagic anemia; K92.2 Gastrointestinal hemorrhage, unspecified; G89.18 Other acute postprocedural pain; N20.0 Calculus of kidney; K21.9 Gastro-esophageal reflux disease without esophagitis; Z86.711 Personal history of pulmonary embolism; Z86.718 Personal history of other venous thrombosis and embolism; Z90.49 Acquired absence of other specified parts of digestive tract; Z93.3 Colostomy status
CPT/HCPCS: 10030; 71010; 74177; 80048; 80053; 80202; 81003; 82803; 83540; 83605; 83690; 83735; 84466; 84703; 85014; 85018; 85025; 85027; 85610; 85730; 87040; 87070; 87075; 87086; 87205; 93971; 99281; 99285; C1751; C1753; C1769; J0692; J1170; J1650; J2550; J3010; J3370; J3411; J3475; J3480; J7030; J7040; J7050; S0030

== ENCOUNTER 2017-04-16 09:08 | Inpatient (IN) | payer OTHER ==
[~2017-04-16] VITALS: Ht 167.6 cm; Wt 101.5 kg
[2017-04-16 09:36] LABS: HEMATOCRIT 31.6 % (36.0-46.0); MCH 27.7 PG (29.0-34.0); MCV 86.6 FL (83-99); MEAN PLAT.VOLUME 9.3 uM^3 (9.5-12.4); PLATELET COUNT 575 K/uL (156-360); RBC DIS.WIDTH-CV 15.2 % (11.8-14.6); RBC DIS.WIDTH-SD 47.8 % (39-53); RED BLOOD COUNT 3.65 M/uL (3.80-5.20); WHITE BLOOD COUNT 19.3 K/uL (4.1-10.2)
[2017-04-16 09:46] LABS: CHLORIDE 104 mEq/L (99-109); POTASSIUM 3.4 mEq/L (3.7-5.4); SODIUM 142 mEq/L (136-147)
[2017-04-16 09:49] LABS: GLUCOSE 113 mg/dL (70-99)
[2017-04-16 09:50] LABS: ANION GAP 15 MEQ/L (2-14)
[2017-04-16 09:51] LABS: TOTAL BILIRUBIN 0.5 mg/dL (0.0-1.0)
[2017-04-16 09:52] LABS: ALKALINE PHOSPHATASE 86 IU/L (3-129); GFR ESTIMATE (CALCULATED) > 59 mL/min/
[2017-04-16 09:53] LABS: UREA NITROGEN (BUN) 9 mg/dL (9-23)
[2017-04-16 14:03] LABS: ADD MIUA? YES; BILIRUBIN SMALL; BLOOD NEGATIVE; COLOR AMBER ((YELLOW)); GLUCOSE (STRIP) NEGATIVE; KETONES NEGATIVE; LEUKOCYTES LARGE; NITRITE NEGATIVE; PROTEIN (STRIP) 100; SPECIFIC GRAVITY 1.025 (1.000-1.030)
[2017-04-16 14:11] LABS: BACTERIA 1+ /HPF; BUDDING YEAST 2+; EPITHELIAL CELLS 4+ /HPF; MUCUS 4+ /LPF; UCUL ADDED? YES; WHITE BLOOD CELLS TNTC /HPF (0-5); WHITE BLOOD CELLS CLUMP FEW /HPF (0-5)
[2017-04-16] MEDS ORDERED: DAILY VALUE1 EACH PO (16:58)
[2017-04-16] MEDS ORDERED: VITAMIN D31000 UNIT PO (16:58)
[2017-04-17 01:48] VITALS: BP 117/59
[2017-04-17 03:49] LABS: INTERNAL CONTROL VALID? YES
[2017-04-17 04:06] LABS: C DIFF TOXIN POSITIVE (NEGATIVE)
[2017-04-17 04:10] LABS: PROBE CHECK PASS
[2017-04-17 07:43] VITALS: BP 100/54
[2017-04-17 09:30] LABS: HEMATOCRIT 28.2 % (36.0-46.0); MCHC 31.9 G/DL (30.0-36.0); MCV 87.6 FL (83-99); RBC DIS.WIDTH-SD 47.9 % (39-53); RED BLOOD COUNT 3.22 M/uL (3.80-5.20); WHITE BLOOD COUNT 12.3 K/uL (4.1-10.2)
[2017-04-17 10:13] LABS: ANION GAP 11 MEQ/L (2-14); CHLORIDE 106 MEQ/L (99-109); GFR ESTIMATE (CALCULATED) > 59 mL/min/; GLUCOSE 169 mg/dL (70-99); SAMPLE HEMOLYSIS CHECK 1; SAMPLE ICTERIC CHECK 0; SAMPLE LIPEMIA CHECK 0; SODIUM 141 MEQ/L (136-147); UREA NITROGEN (BUN) 13 mg/dL (9-23)
[2017-04-17 11:01] LABS: HEMATOLOGY COMMENT 1 SMEAR COMPATIBLE; MEAN PLAT.VOLUME 9.8 uM^3 (9.5-12.4); PLAT.SUFFICIENCY INCREASED
[2017-04-17 11:22] LABS: PLATELET COUNT 362 K/uL (156-360)
[2017-04-17 12:31] VITALS: BP 106/57
[2017-04-17 13:15] LABS: INTER. NORMALIZED RATIO 1.5; PROTHROMBIN TIME 17.2 SEC (10.2-12.9)
[2017-04-17 13:18] LABS: PTT 30.3 SEC (25-37)
[2017-04-17 15:35] VITALS: BP 98/58
[2017-04-18 00:26] VITALS: BP 108/52
[2017-04-18 06:17] LABS: EOSINOPHIL (%) 0.1 % (0-5); IMMATURE GRANULOCYTE (%) 1.2 % (0.0-0.7); IMMATURE GRANULOCYTE COUNT 0.1 K/uL; INSTRUMENT ABS NEUTROPHIL CT 5.8 K/uL; LYMPHOCYTE COUNT 0.9 K/uL (1.0-2.8); MCH 27.1 PG (29.0-34.0); MCHC 30.8 G/DL (30.0-36.0); MCV 88.1 FL (83-99); MEAN PLAT.VOLUME 9.7 uM^3 (9.5-12.4); MONOCYTE (%) 6.9 % (3-12); MONOCYTE COUNT 0.5 K/uL (0-0.8); NEUTROPHIL (%) 79.4 % (45-76); NEUTROPHIL COUNT 5.8 K/uL (1.8-6.4); PLATELET COUNT 424 K/uL (156-360); RBC DIS.WIDTH-SD 48.3 % (39-53); RED BLOOD COUNT 2.95 M/uL (3.80-5.20); WHITE BLOOD COUNT 7.3 K/uL (4.1-10.2)
[2017-04-18 06:47] LABS: ANION GAP 10 MEQ/L (2-14); CHLORIDE 110 MEQ/L (99-109); GFR ESTIMATE (CALCULATED) > 59 mL/min/; GLUCOSE 117 mg/dL (70-99); POTASSIUM 3.2 MEQ/L (3.7-5.4); SAMPLE HEMOLYSIS CHECK 0; SAMPLE ICTERIC CHECK 0; SAMPLE LIPEMIA CHECK 0; SODIUM 145 MEQ/L (136-147); UREA NITROGEN (BUN) 15 mg/dL (9-23)
[2017-04-18 07:35] VITALS: BP 106/60
[2017-04-18 17:08] VITALS: BP 110/58
[2017-04-19 00:46] VITALS: BP 110/58
[2017-04-19 07:22] VITALS: BP 116/78
[2017-04-19 09:45] LABS: HEMATOCRIT 24.1 % (36.0-46.0); MCH 26.5 PG (29.0-34.0); MCHC 30.3 G/DL (30.0-36.0); MCV 87.6 FL (83-99); MEAN PLAT.VOLUME 9.8 uM^3 (9.5-12.4); PLATELET COUNT 377 K/uL (156-360); RBC DIS.WIDTH-CV 15.3 % (11.8-14.6); RBC DIS.WIDTH-SD 48.7 % (39-53); RED BLOOD COUNT 2.75 M/uL (3.80-5.20); WHITE BLOOD COUNT 3.6 K/uL (4.1-10.2)
[2017-04-19 10:12] LABS: ANION GAP 7 MEQ/L (2-14); CHLORIDE 110 MEQ/L (99-109); GFR ESTIMATE (CALCULATED) > 59 mL/min/; GLUCOSE 103 mg/dL (70-99); POTASSIUM 3.5 MEQ/L (3.7-5.4); SAMPLE HEMOLYSIS CHECK 0; SAMPLE ICTERIC CHECK 0; SAMPLE LIPEMIA CHECK 0; SODIUM 143 MEQ/L (136-147); UREA NITROGEN (BUN) 11 mg/dL (9-23)
[2017-04-19 11:34] LABS: ADD MIUA? YES; BILIRUBIN NEGATIVE; BLOOD SMALL; COLOR YELLOW ((YELLOW)); GLUCOSE (STRIP) NEGATIVE; KETONES NEGATIVE; LEUKOCYTES LARGE; NITRITE NEGATIVE; PROTEIN (STRIP) NEGATIVE; SPECIFIC GRAVITY 1.021 (1.000-1.030); UROBILINOGEN 0.2 MG/DL (0.2-1.0)
[2017-04-19 12:06] LABS: BACTERIA RARE /HPF; EPITHELIAL CELLS 1+ /HPF; MUCUS 1+ /LPF; UCUL ADDED? YES; WHITE BLOOD CELLS TNTC /HPF (0-5)
[2017-04-19 12:15] LABS: HEMATOCRIT 27.8 % (36.0-46.0); MCV 87.7 FL (83-99)
[2017-04-19 16:20] VITALS: BP 110/70
[2017-04-19 18:28] VITALS: BP 118/68
[2017-04-19 19:29] LABS: INTERNAL CONTROL VALID? YES
[2017-04-19 20:08] VITALS: BP 133/63
[2017-04-21 11:55] LABS: POC NON-PRINT COM 1 ND
== END 2017-04-19 22:00 | disposition short-term general hospital (02) | DRG 385 ==
LOC: EME 09:08 → 5EAST 23:43 → EDOF 23:43 → ENRESERV 23:45 → 5EAST 04-17 01:39
PROVIDERS: Hospitalist; Radiology Diagnostic Radiology; Surgery
PROC: 0W9G3ZX Drainage of Peritoneal Cavity, Percutaneous Approach, Diagnostic (ICD-10-PCS; principal; 2017-04-17)
DX: K50.014 Crohn's disease of small intestine with abscess (principal); N82.3 Fistula of vagina to large intestine; K50.018 Crohn's disease of small intestine with other complication; K63.1 Perforation of intestine (nontraumatic); A04.72 Enterocolitis due to Clostridium difficile, not specified as recurrent; R18.8 Other ascites; N39.0 Urinary tract infection, site not specified; I87.1 Compression of vein; E87.8 Other disorders of electrolyte and fluid balance, not elsewhere classified; D64.9 Anemia, unspecified; D68.59 Other primary thrombophilia; I10 Essential (primary) hypertension; F32.9 Major depressive disorder, single episode, unspecified; Z79.01 Long term (current) use of anticoagulants; Z86.711 Personal history of pulmonary embolism; Z86.718 Personal history of other venous thrombosis and embolism; Z90.710 Acquired absence of both cervix and uterus; Z93.3 Colostomy status
CPT/HCPCS: 49406; 74176; 80048; 80053; 81003; 82272; 85014; 85018; 85025; 85027; 85610; 85730; 87070; 87075; 87086; 87086 GA; 87106; 87205; 87493; 99281; 99285; C9113; J0295; J1170; J1626; J1650; J1885; J1956; J2543; J2920; J3010; J3480; J7030; J7042; J7050; J7120; Q0167; Q0169; S0028; S0030

== ENCOUNTER 2017-05-17 21:48 | Emergency (ER) | payer OTHER ==
[~2017-05-17] VITALS: Ht 175.3 cm; Wt 92.5 kg
[2017-05-17 22:48] LABS: HEMATOCRIT 28.2 % (36.0-46.0); HEMOGLOBIN 9.2 G/DL (11.9-15.5); MCH 25.8 PG (29.0-34.0); MCHC 32.6 G/DL (30.0-36.0); RBC DIS.WIDTH-CV 17.2 % (11.8-14.6); RBC DIS.WIDTH-SD 49.1 % (39-53); WHITE BLOOD COUNT 5.3 K/uL (4.1-10.2)
[2017-05-17 22:51] LABS: INTER. NORMALIZED RATIO 1.2
[2017-05-17 22:54] LABS: PTT 24.4 SEC (25-37)
[2017-05-17 22:55] LABS: ALBUMIN 3.5 g/dL (3.2-4.8); CHLORIDE 106 mEq/L (99-109); POTASSIUM 3.1 mEq/L (3.7-5.4); SODIUM 138 mEq/L (136-147)
[2017-05-17 22:57] LABS: GLUCOSE 129 mg/dL (70-99); TOTAL PROTEIN 7.7 g/dL (6.4-8.3)
[2017-05-17 22:59] LABS: TOTAL BILIRUBIN 0.5 mg/dL (0.0-1.0)
[2017-05-17 23:01] LABS: ALKALINE PHOSPHATASE 82 IU/L (3-129); CREATININE 0.7 mg/dL (0.6-1.3); GFR ESTIMATE (CALCULATED) > 59 mL/min/
[2017-05-17 23:02] LABS: MCV 79.2 FL (83-99); RED BLOOD COUNT 3.56 M/uL (3.80-5.20); UREA NITROGEN (BUN) 9 mg/dL (9-23)
[2017-05-17 23:03] LABS: AST (GOT) 25 IU/L (2-34)
[2017-05-17 23:04] LABS: ALT (GPT) 32 IU/L (3-49); LIPASE 293 U/L (1.0-51.0)
[2017-05-17 23:34] LABS: HEMATOLOGY COMMENT 1 SN; PLAT.SUFFICIENCY ADEQUATE; PLATELET COUNT UNABLE TO REPORT K/uL (156-360)
[2017-05-18 02:52] LABS: APPEARANCE SL.HAZY ((CLEAR)); BILIRUBIN NEGATIVE; BLOOD SMALL; COLOR YELLOW ((YELLOW)); GLUCOSE (STRIP) NEGATIVE; KETONES NEGATIVE; LEUKOCYTES LARGE; NITRITE NEGATIVE; PROTEIN (STRIP) 30; SPECIFIC GRAVITY 1.016 (1.000-1.030); UROBILINOGEN 0.2 MG/DL (0.2-1.0)
[2017-05-18 03:00] LABS: BACTERIA NONE SEEN /HPF; EPITHELIAL CELLS 1+ /HPF; MUCUS 2+ /LPF; UCUL ADDED? YES
[2017-05-18 06:50] VITALS: BP 104/58
== END 2017-05-18 07:11 | disposition short-term general hospital (02) ==
LOC: EME 21:48
PROVIDERS: Physician Assistant
DX: K63.1 Perforation of intestine (nontraumatic) (principal); N73.9 Female pelvic inflammatory disease, unspecified; K50.018 Crohn's disease of small intestine with other complication; E87.6 Hypokalemia; E86.0 Dehydration; Z86.718 Personal history of other venous thrombosis and embolism; Z86.711 Personal history of pulmonary embolism; E66.9 Obesity, unspecified; Z88.5 Allergy status to narcotic agent; Z90.710 Acquired absence of both cervix and uterus; D68.59 Other primary thrombophilia; Z93.3 Colostomy status; G89.29 Other chronic pain; Z87.442 Personal history of urinary calculi; Z90.49 Acquired absence of other specified parts of digestive tract
CPT/HCPCS: 71046; 74176; 80053; 81003; 83605; 83690; 85027; 85610; 85730; 87040; 87077; 87086; 87801; 93005; 99281; 99285; J2060; J2543; J2550; J2997; J3010; J7030

== ENCOUNTER 2017-08-03 02:32 | Emergency (ER) | payer OTHER ==
[2017-08-03 03:14] LABS: HEMATOCRIT 36.3 % (36.0-46.0); HEMOGLOBIN 10.7 G/DL (11.9-15.5); MCHC 29.5 G/DL (30.0-36.0); MCV 98.4 FL (83-99); NRBC (%) 1.4 /100 WBC (0-0); RBC DIS.WIDTH-CV 15.4 % (11.8-14.6); RBC DIS.WIDTH-SD 55.6 % (39-53); RED BLOOD COUNT 3.69 M/uL (3.80-5.20); WHITE BLOOD COUNT 11.8 K/uL (4.1-10.2)
[2017-08-03 03:20] LABS: INTER. NORMALIZED RATIO 1.5
[2017-08-03 03:22] LABS: AMYLASE 21 IU/L (1-118); CHLORIDE 99 mEq/L (99-109); POTASSIUM 5.6 mEq/L (3.7-5.4); SODIUM 139 mEq/L (136-147)
[2017-08-03 03:22] LABS: PTT 61.1 SEC (25-37)
[2017-08-03 03:27] LABS: SERUM ETHYL ALCOHOL < 10 mg/dL
[2017-08-03 03:28] LABS: GFR ESTIMATE (CALCULATED) 30 mL/min/
[2017-08-03 03:29] LABS: UREA NITROGEN (BUN) 24 mg/dL (9-23)
[2017-08-03 03:31] LABS: LIPASE 25 U/L (1.0-51.0)
[2017-08-03 03:35] LABS: TROP-I INTERPRETATION POSITIVE
[2017-08-03 03:37] LABS: QUANTITATIVE HCG < 4.0 MIU/ML
[2017-08-03 03:41] LABS: GLUCOSE 515 mg/dL (70-99)
[2017-08-03 03:45] LABS: TROPONIN-I 0.95 ng/mL (0.0-0.30)
[2017-08-03 05:00] LABS: ABS NEUTROPHIL COUNT 6.7; ANISOCYTOSIS 1+; ATYPICAL LYMPHOCYTE 8.8 %; BAND NEUTROPHILS 10.6 % (0-8.0); EOSINOPHIL ABS CT 0; HYPOCHROMASIA 1+; IMM.PLATELET FRACTION 5.5 (1-7); LYMPHOCYTES 20.4 % (15.0-45.0); MACROCYTES 1+; METAMYELOCYTES 0.9 %; MONOCYTES 11.5 % (0-9.0); MYELOCYTES 1.8 %; PLAT.SUFFICIENCY DECREASED; PLATELET COUNT 49 K/uL (156-360); POIKILOCYTOSIS 1+; SPHEROCYTES 1+
== END 2017-08-03 06:16 ==
LOC: EME → EDBD 02:32 → EME 02:32
PROVIDERS: Emergency Medicine
DX: I46.9 Cardiac arrest, cause unspecified (principal); K50.90 Crohn's disease, unspecified, without complications; Z93.3 Colostomy status; Z88.5 Allergy status to narcotic agent; Z88.8 Allergy status to other drugs, medicaments and biological substances; Z86.711 Personal history of pulmonary embolism
CPT/HCPCS: 80047; 80048; 81003; 82150; 83605; 83690; 84484; 84702; 85025; 85610; 85730; 86850; 86900; 86901; 87040; 87077; 87186; 87801; 94002; 94799; 99281; 99285; C1751; G0480; J0171; J1265; J2997